=== PATIENT | female | born 1980 | race Caucasian/White ===

== ENCOUNTER 2017-12-13 04:05 | Inpatient (IN) | payer MEDICAID ==
--- NOTE | 2017-12-13 05:17 | HP ---
General Information - General Information Maternal Age: 37 Grav: 5 Para: 4 SAB: 0 IEA: 0 Estimated Due Date: 12/18/17 - 38 w 2 d Determined By: LMP Maternal Blood Type and Rh: A Positive - Results this Serology/RPR Result: Non-Reactive Rubella Result: Immune HBsAg Result: Negative HIV Result: Negative GBS Culture Result: Negative Past Medical History Delivery History: Hx Uncomplicated Vaginal Delivery Delivery History Comment: hx rapid labor Pertinent Past Medical History: Non-Contributory Pertinent Past Surgical History: None Pertinent Family History: Non-Contributory - Antepartal Records Antepartal Records: Reviewed, Complicated by: - age 37, normal NIPT Review of Systems Constitutional: Comfortable CV Complaint: No Respiratory: Shortness of Breath: No Gastrointestinal: No Nausea/Vomiting, Normal Bowel Movement Genitourinary: No Leaking Fluid Musculoskeletal: Contractions Neurological: No Headache Movement: Normal Exam Allergies/Adverse Reactions: Allergies No Known Allergies Allergy (Verified 12/13/17 05:15) 98.5-70-18 139/82 - Measurements Height: 5 ft 8 in Weight: 161 lb Weight in lbs: 161 Body Mass Index (BMI): 24.5 Pre- Weight: 137 lb - 23 lb weight gain - Exam Abdomen: No Upper Quadrant Pain Breast: - - soft, no masses Extremities: No Edema Heart: Normal Rhythm/Heart Sounds HEENT: No Significant Findings Lungs: Clear Bilaterally Reflexes: DTR 2+ Thyroid: No Thyromegaly - Abdominal Exam Abdomen Exam: Non-Tender, Fundal Height Consistent with Dates - Ultrasound/Biophysical Profile Ultrasound Status: Not Done Targeted Exam Findings See L&D Outpatient Visit Provider Note for Findings: N/A Estimated Weight: 6 lbs Cervical Exam: 5cm Effacement: 80% Station: -1 Presenting Part: Vertex Membrane Status: Bulging Bleeding/Discharge: None EFM Findings - External Monitor Findings Baseline Heart Rate: 145 External Monitor Findings: Accelerations Present, No Pattern of Variable or Late Decelerations, Variability Moderate External Monitor Findings Comment: category 1 Contractions: Regular, Moderate, 45-90 Seconds Contraction Frequency: q 4 min Assessment/Plan - Reason for Visit Reason for Visit: labor - Plan Plan: Active Labor Plan Comment: will admit, anticipate vaginal delivery - Date/Time of Admission Date of Admission: 12/13/17 Time of Admission: 04:50
[2017-12-13] MEDS ORDERED: Dibucaine 1% 28.35 GM TUBE PR PRN (08:21)
[2017-12-13] MEDS ORDERED: Acetaminophen TAB* 325 MG PO PRN (08:21)
[2017-12-13] MEDS ORDERED: Witch Hazel PAD* JAR TOPICAL PRN (08:21)
[2017-12-13] MEDS ORDERED: Glycerin ADULT SUPP PR PRN (08:21)
[2017-12-13] MEDS ORDERED: OXYTOCIN* 10 UNITS/ML 1 ML VIAL IM ONE (08:21)
[2017-12-13] MEDS: Ibuprofen TAB* 600 MG PO PRN ×3 (08:35→22:03)
[2017-12-13] MEDS: Docusate CAP* 100 MG PO SCH ×3 (08:35→20:53)
[2017-12-14] MEDS: Ibuprofen TAB* 600 MG PO PRN ×2 (04:12→10:32)
[2017-12-14 07:19] VITALS: BP 119/84
[2017-12-14 08:18] LABS: ABS Basophils 0 10^3/ul (0-0.2); ABS Eosinophils 0.2 10^3/ul (0-0.6); ABS Lymphocytes 2.4 10^3/ul (1.0-4.8); ABS Monocytes 0.9 10^3/ul (0-0.8); ABS Neutrophils 6.6 10^3/ul (1.5-7.7); ABS Nucleated RBC 0 10^3/ul; Eosinophil % 1.8 % (0-6); Hematocrit 38 % (35-47); Hemoglobin 12.6 g/dl (12.0-16.0); Lymphocyte % 24.1 % (25-47); Mean Corpuscular HGB Conc 34 g/dl (31-36); Mean Corpuscular Hemoglobin 31 pg (27-31); Mean Corpuscular Volume 93 fL (80-97); Mean Platelet Volume 9.6 um3 (7.4-10.4); Nucleated Red Blood Cells % 0; Platelet Count 200 10^3/ul (150-450); Red Blood Count 4.05 10^6/ul (4.0-5.4); Red Cell Distribution Width 13 % (10.5-15); White Blood Count 10.1 10^3/ul (3.5-10.8)
[2017-12-14] MEDS: Docusate CAP* 100 MG PO SCH (08:27)
[2017-12-14] MEDS ORDERED: Ferrous Gluconate TAB* 324 MG TAB PO SCH (09:00)
== END 2017-12-14 11:01 | disposition home or self-care (01) | DRG 560 ==
LOC: MCHOBOUT 04:05 → MCHOB 04:56
PROVIDERS: ADMIT Midwife; ATTEND Midwife
PROC: 10907ZC Drainage of Amniotic Fluid, Therapeutic from Products of Conception, Via Natural or Artificial Opening (ICD-10-PCS; principal; 2017-12-13)
PROC: 10E0XZZ Delivery of Products of Conception, External Approach (ICD-10-PCS; 2017-12-13)
PROC: 4A1HX4Z Monitoring of Products of Conception, Cardiac Electrical Activity, External Approach (ICD-10-PCS; 2017-12-13)
DX: O22.43 Hemorrhoids in pregnancy, third trimester (principal); Z37.0 Single live birth; Z3A.39 39 weeks gestation of pregnancy
CPT/HCPCS: 36415; 85025; A9270-GY; J2590